=== PATIENT | female | born 1955 | race Caucasian/White ===

== ENCOUNTER 2018-04-24 20:20 | Inpatient (IN) | payer OTHER ==
[2018-04-24 21:10] LABS: ADD MAN DIFF? NO
[2018-04-24 21:15] LABS: BASOPHIL # 0.1 10^3/ul (0.0-0.1); BASOPHILS % 0.4 % (0.0-2.0); EOSINOPHILS # 0.1 10^3/ul (0.0-0.5); EOSINOPHILS % 0.6 % (0.0-7.0); HEMATOCRIT 38.7 % (37.0-47.0); HEMOGLOBIN 13.1 g/dl (12.0-16.0); MEAN CORPUSCULAR HGB CONC 33.9 g/dl (32.0-37.0); MEAN CORPUSCULAR VOLUME 82.7 fl (82.0-101.0); MEAN PLATELET VOLUME 10.4 fl (7.4-10.4); MONOCYTE # 1.5 10^3/ul (0.3-0.9); MONOCYTES % 11.1 % (0.0-11.0); NEUTROPHIL # 9.5 10^3/ul (1.6-7.5); NEUTROPHILS % 72.4 % (39.0-77.0); PLATELET COUNT 264 10^3/UL (140-415); RED BLOOD COUNT 4.68 10^6/ul (4.20-5.40); RED CELL DISTRIBUTION WIDTH 13.3 % (11.5-14.5)
[2018-04-24 21:15] LABS: WHITE BLOOD COUNT 13.2 10^3/ul (4.8-10.8)
[2018-04-24 21:28] LABS: ADD UMIC YES; UR ASCORBIC ACID NEGATIVE (NEGATIVE); UR BACTERIA FEW /HPF (NONE SEEN); UR BILIRUBIN (Dip) NEGATIVE (NEGATIVE); UR BLOOD (Dip) NEGATIVE (NEGATIVE); UR CLARITY CLEAR (CLEAR); UR COLOR STRAW (YELLOW); UR GLUCOSE (Dip) NEGATIVE (NEGATIVE); UR KETONES (Dip) NEGATIVE (NEGATIVE); UR LEUKOCYTE ESTERASE (Dip) 3+ Leu/ul (NEGATIVE); UR NITRITE (Dip) NEGATIVE (NEGATIVE); UR RBC 3 /HPF (0-5); UR SPECIFIC GRAVITY (Dip) 1.005 (1.003-1.030); UR TOTAL PROTEIN (Dip) NEGATIVE (NEGATIVE); UR UROBILINOGEN (Dip) NEGATIVE (NEGATIVE); UR WBC 44 /HPF (0-5)
[2018-04-24 21:39] LABS: INR 1.09; PROTIME 14.2 Sec (11.9-14.9); PT RATIO 1.1
[2018-04-24] MEDS: SODIUM CHLORIDE 0.9% 1L BAG IV* (21:39)
[2018-04-24 21:42] LABS: ALANINE AMINOTRANSFERASE 61 IU/L (13-69); ALBUMIN 4.3 g/dl (3.3-4.9); ALBUMIN/GLOBULIN RATIO 1.22; ALKALINE PHOSPHATASE 135 IU/L (42-121); ANION GAP 18 (8-16); ASPARTATE AMINO TRANSFERASE 35 IU/L (15-46); BILIRUBIN,INDIRECT 0.6 mg/dl (0-1.1); BILIRUBIN,TOTAL 0.6 mg/dl (0.2-1.3); BLOOD UREA NITROGEN 12 mg/dl (7-20); CALCIUM 9.8 mg/dl (8.4-10.2); CARBON DIOXIDE 23 mmol/L (21-31); CHLORIDE 104 mmol/L (97-110); CREATININE 0.67 mg/dl (0.44-1.00); GLUCOSE 149 mg/dl (70-220); SODIUM 141 mmol/L (135-144); TOTAL PROTEIN 7.8 g/dl (6.1-8.1)
[2018-04-24 21:43] LABS: LACTIC ACID 1.7 mmol/L (0.5-2.0)
[2018-04-24 21:44] LABS: PARTIAL THROMBOPLASTIN TIME 34.9 Sec (25.0-35.0)
[2018-04-24] MEDS: CEFEPIME 2GM/50 ML (PMX) 50 ML IVPB (21:47)
[2018-04-24 21:53] LABS: TROPONIN-I < 0.010 ng/ml (0.000-0.120)
[2018-04-24] MEDS ORDERED: BISACODYL (EC) 5 MG TAB PO (23:00)
[2018-04-24] MEDS ORDERED: ONDANSETRON 4 MG INJ IV (23:00)
[2018-04-24] MEDS ORDERED: NACL 0.9% 3 ML SYG IV (23:00)
[2018-04-24] MEDS ORDERED: DOCUSATE SODIUM 100 MG CAP PO (23:00)
[2018-04-24] MEDS ORDERED: DEXTROSE 50% 50 ML SYRINGE IV ×2 (23:30)
[2018-04-24] MEDS ORDERED: GLUCOSE GEL 15 GRAM TUBE BUCCAL (23:30)
[2018-04-24] MEDS ORDERED: GLUCAGON 1 MG INJ IM (23:30)
[2018-04-24] MEDS ORDERED: GLUCOSE GEL 15 GRAM TUBE PO ×2 (23:30)
[2018-04-24 23:38] LABS: LACTIC ACID 1.4 mmol/L (0.5-2.0)
[2018-04-24] MEDS: KETOROLAC 30 MG INJ IV (23:59)
[2018-04-25] MEDS: ACETAMINOPHEN 325 MG TAB PO (00:06)
[2018-04-25] MEDS: CIPROFLOXACIN 400MG/D5W 200 ML IVPB (00:55)
[2018-04-25] MEDS: ACCU-CHEK XX (02:25)
[2018-04-25 08:03] LABS: ADD MAN DIFF? NO
[2018-04-25 08:08] LABS: BASOPHILS % 0.2 % (0.0-2.0); EOSINOPHILS # 0.1 10^3/ul (0.0-0.5); EOSINOPHILS % 0.8 % (0.0-7.0); HEMATOCRIT 35.7 % (37.0-47.0); HEMOGLOBIN 11.6 g/dl (12.0-16.0); LYMPHOCYTES # 1.9 10^3/ul (0.8-2.9); LYMPHOCYTES % 13.3 % (15.0-51.0); MEAN CORPUSCULAR HEMOGLOBIN 27.2 pg (29.0-33.0); MEAN CORPUSCULAR HGB CONC 32.5 g/dl (32.0-37.0); MEAN CORPUSCULAR VOLUME 83.6 fl (82.0-101.0); MEAN PLATELET VOLUME 10.4 fl (7.4-10.4); MONOCYTE # 1.5 10^3/ul (0.3-0.9); MONOCYTES % 10.5 % (0.0-11.0); NEUTROPHIL # 10.7 10^3/ul (1.6-7.5); NEUTROPHILS % 74.7 % (39.0-77.0); PLATELET COUNT 228 10^3/UL (140-415); RED BLOOD COUNT 4.27 10^6/ul (4.20-5.40); RED CELL DISTRIBUTION WIDTH 13.5 % (11.5-14.5)
[2018-04-25 08:08] LABS: WHITE BLOOD COUNT 14.3 10^3/ul (4.8-10.8)
[2018-04-25 08:22] LABS: HEMOGLOBIN A1C 7.3 % (0-5.9)
[2018-04-25] MEDS: INSULIN ASPART [NOVOLOG] 3 ML PEN SC ×4 (08:49→21:00)
[2018-04-25] MEDS: LEVOFLOXACIN 750MG/D5W (PMX) 150 ML IVPB (08:50)
[2018-04-25] MEDS: BENAZEPRIL 10 MG TAB PO (08:55)
[2018-04-25] MEDS: AMLODIPINE 5 MG TAB PO (08:56)
[2018-04-25 08:57] LABS: ALANINE AMINOTRANSFERASE 55 IU/L (13-69); ALBUMIN 3.2 g/dl (3.3-4.9); ALBUMIN/GLOBULIN RATIO 1.03; ALKALINE PHOSPHATASE 100 IU/L (42-121); ANION GAP 15 (8-16); ASPARTATE AMINO TRANSFERASE 24 IU/L (15-46); BILIRUBIN,INDIRECT 0.7 mg/dl (0-1.1); BILIRUBIN,TOTAL 0.7 mg/dl (0.2-1.3); BLOOD UREA NITROGEN 16 mg/dl (7-20); CALCIUM 8.8 mg/dl (8.4-10.2); CARBON DIOXIDE 22 mmol/L (21-31); CHLORIDE 110 mmol/L (97-110); CHOL/HDL RATIO 3.5 RATIO; CHOLESTEROL 120 mg/dl (100-200); CREATININE 0.64 mg/dl (0.44-1.00); GLUCOSE 183 mg/dl (70-220); HDL CHOLESTEROL 34 mg/dl (35-98); LDL CHOLESTEROL,CALCULATED 67 mg/dl; MAGNESIUM 1.7 mg/dl (1.7-2.5); SODIUM 143 mmol/L (135-144); TOTAL PROTEIN 6.3 g/dl (6.1-8.1); TRIGLYCERIDES 96 mg/dl (0-149)
[2018-04-25] MEDS: SOD CHLORIDE 0.9% 1,000 ML IV ×2 (10:00→18:30)
[2018-04-25 10:03] LABS: THYROID STIMULATING HORMONE 0.878 MIU/L (0.465-4.680)
[2018-04-26] MEDS: SOD CHLORIDE 0.9% 1,000 ML IV ×2 (01:15→14:35)
[2018-04-26] MEDS: ACCU-CHEK XX (02:00)
[2018-04-26] MEDS: AMLODIPINE 5 MG TAB PO (08:06)
[2018-04-26] MEDS: LEVOFLOXACIN 750MG/D5W (PMX) 150 ML IVPB (08:07)
[2018-04-26] MEDS: BENAZEPRIL 10 MG TAB PO (08:07)
[2018-04-26] MEDS: INSULIN ASPART [NOVOLOG] 3 ML PEN SC ×4 (08:08→20:56)
[2018-04-26] MEDS: CEFEPIME 1GM/50 ML (PMX) 50 ML IVPB ×2 (11:57→20:53)
[2018-04-27] MEDS: SOD CHLORIDE 0.9% 1,000 ML IV ×2 (01:30→06:04)
[2018-04-27] MEDS: ACCU-CHEK XX (02:00)
[2018-04-27] MEDS: INSULIN ASPART [NOVOLOG] 3 ML PEN SC ×2 (07:38→12:13)
[2018-04-27 09:02] LABS: ADD MAN DIFF? NO
[2018-04-27 09:08] LABS: BASOPHIL # 0.1 10^3/ul (0.0-0.1); BASOPHILS % 0.8 % (0.0-2.0); EOSINOPHILS # 0.2 10^3/ul (0.0-0.5); EOSINOPHILS % 3.2 % (0.0-7.0); HEMATOCRIT 36.4 % (37.0-47.0); HEMOGLOBIN 11.9 g/dl (12.0-16.0); LYMPHOCYTES % 32.4 % (15.0-51.0); MEAN CORPUSCULAR HEMOGLOBIN 27.5 pg (29.0-33.0); MEAN CORPUSCULAR HGB CONC 32.7 g/dl (32.0-37.0); MEAN CORPUSCULAR VOLUME 84.1 fl (82.0-101.0); MEAN PLATELET VOLUME 10.6 fl (7.4-10.4); MONOCYTE # 0.9 10^3/ul (0.3-0.9); MONOCYTES % 13.7 % (0.0-11.0); NEUTROPHIL # 3.1 10^3/ul (1.6-7.5); NEUTROPHILS % 49.4 % (39.0-77.0); PLATELET COUNT 271 10^3/UL (140-415); RED BLOOD COUNT 4.33 10^6/ul (4.20-5.40); RED CELL DISTRIBUTION WIDTH 13.2 % (11.5-14.5)
[2018-04-27 09:08] LABS: WHITE BLOOD COUNT 6.3 10^3/ul (4.8-10.8)
[2018-04-27] MEDS: CEFEPIME 1GM/50 ML (PMX) 50 ML IVPB (09:17)
[2018-04-27] MEDS: AMLODIPINE 5 MG TAB PO (09:18)
[2018-04-27] MEDS: BENAZEPRIL 10 MG TAB PO (09:18)
[2018-04-27 09:30] LABS: ANION GAP 11 (8-16); BLOOD UREA NITROGEN 12 mg/dl (7-20); CALCIUM 8.7 mg/dl (8.4-10.2); CARBON DIOXIDE 21 mmol/L (21-31); CHLORIDE 113 mmol/L (97-110); CREATININE 0.61 mg/dl (0.44-1.00); GLUCOSE 139 mg/dl (70-220); MAGNESIUM 1.9 mg/dl (1.7-2.5); PHOSPHORUS 3.4 mg/dl (2.5-4.9); POTASSIUM 3.7 mmol/L (3.5-5.1); SODIUM 141 mmol/L (135-144)
[2018-04-27] MEDS: TRIMETHOPRIM/SULFAMETHOX (DS) TAB PO (12:10)
[2018-04-27] MEDS ORDERED: TRIMETHOPRIM/SULFAMETHOX (DS) TAB PO (21:00)
== END 2018-04-27 13:50 | disposition home or self-care (01) | DRG 872 ==
LOC: E/R 20:20 → TEL 22:42
DX: A41.51 Sepsis due to Escherichia coli [E. coli] (principal); N39.0 Urinary tract infection, site not specified; B96.20 Unspecified Escherichia coli [E. coli] as the cause of diseases classified elsewhere; E66.9 Obesity, unspecified; Z68.38 Body mass index [BMI] 38.0-38.9, adult; N20.0 Calculus of kidney; E11.9 Type 2 diabetes mellitus without complications
CPT/HCPCS: 36415; 71045; 74018; 74176; 76775; 80048; 80053; 80061; 81001; 82962; 83036; 83605; 83735; 84100; 84443; 84484; 85025; 85610; 85730; 87040; 87086; 93005; 96374; 99291-25

== ENCOUNTER 2018-06-08 16:40 | Emergency (ER) | payer OTHER ==
[2018-06-08 18:59] LABS: URINE BLOOD (Dip) POC Negative (NEGATIVE); URINE GLUCOSE (Dip) POC Negative (NEGATIVE); URINE KETONES (Dip) POC Negative (NEGATIVE); URINE LEUKOCYTE EST (Dip) POC Negative (NEGATIVE); URINE NITRITE (Dip) POC Negative (NEGATIVE); URINE TOTAL PROTEIN POC Negative (NEGATIVE)
[2018-06-08 18:59] LABS: URINE PH (Dip) POC 6.5 (5.0-8.5)
[2018-06-08] MEDS: KETOROLAC 30 MG INJ IM (19:11)
== END 2018-06-08 20:13 | disposition home or self-care (01) ==
LOC: FTE 16:40
DX: R10.2 Pelvic and perineal pain (principal); E11.9 Type 2 diabetes mellitus without complications; I10 Essential (primary) hypertension; Z85.3 Personal history of malignant neoplasm of breast; Z79.84 Long term (current) use of oral hypoglycemic drugs
CPT/HCPCS: 72170; 81003; 96372; 99284-25